=== PATIENT | male | born 1965 | race Caucasian/White ===

== ENCOUNTER 2018-06-16 14:32 | Emergency (ER) | payer SELFPAY ==
[2018-06-16] MEDS ORDERED: cefTRIAXone\\ROCEPHIN 1 GM VIAL ONE (15:19)
[2018-06-16] MEDS ORDERED: Lidocaine 1% PF 5 ML VIAL ONE (15:19)
== END 2018-06-16 15:36 | disposition home or self-care (01) ==
LOC: ERS 14:32
DX: H00.013 Hordeolum externum right eye, unspecified eyelid (principal); H00.032 Abscess of right lower eyelid; G47.30 Sleep apnea, unspecified
CPT/HCPCS: 67700; 96372; J0696; J2001